=== PATIENT | male | born 1965 | race Two or more races ===

== ENCOUNTER 2020-05-25 09:00 | Outpatient (CLI) | payer OTHER ==
[2020-05-30] MEDS ORDERED: HYDROMORPHONE INJ 2 MG/ML DISP.SYRIN ONE (08:34)
[2020-05-30] MEDS ORDERED: BUPIVACAINE 0.5 % PF 150 MG/30 ML VIAL ONE (08:35)
[2020-05-30] MEDS ORDERED: MIDAZOLAM HCL 2 MG/2ML VIAL ONE (08:35)
[2020-05-30] MEDS ORDERED: ROCURONIUM BROMIDE 50 MG/5 ML ONE (08:35)
== END 2020-05-25 23:59 | disposition home or self-care (01) ==
LOC: LAB 09:00
PROVIDERS: ATTEND Student in an Organized Health Care Education/Training Program
DX: Z01.812 Encounter for preprocedural laboratory examination (principal); Z20.828 Contact with and (suspected) exposure to other viral communicable diseases
CPT/HCPCS: C9803-CS; J1170; J2250; J3490

== ENCOUNTER 2020-05-30 06:41 | Day surgery (SDC) | payer OTHER ==
[2020-05-30] MEDS ORDERED: BUPIVACAINE 0.5 % PF 150 MG/30 ML VIAL ONE (08:28)
[2020-05-30] MEDS ORDERED: BACITRACIN 50000 UNITS/VIAL ONE (08:28)
[2020-05-30] MEDS ORDERED: HEMOSTATIC MATRIX 8 ML 1 EACH PAD MC ONE (09:44)
[2020-05-30] MEDS ORDERED: ROCURONIUM BROMIDE 50 MG/5 ML ONE (09:54)
[2020-05-30] MEDS ORDERED: DESFLURANE 240 ML BOTTLE IH ONE (09:54)
[2020-05-30] MEDS ORDERED: HYDROMORPHONE INJ 2 MG/ML DISP.SYRIN ONE (11:28)
[2020-05-30] MEDS ORDERED: ONDANSETRON HCL/PF 4 MG/2 ML VIAL ONE (11:49)
[2020-05-30] MEDS ORDERED: DEXAMETHASONE SOD PHOSPHATE 4 MG/ML VIAL ONE (12:19)
[2020-05-30] MEDS ORDERED: hydrALAZINE HCL IV 20 MG VIAL ONE (12:20)
[2020-05-30] MEDS ORDERED: HYDROCODONE/APAP 10/325MG TABLET PO PRN ×3 (17:00)
== END 2020-05-30 16:00 | disposition home or self-care (01) ==
DX: S43.1 Subluxation and dislocation of acromioclavicular joint (principal); X58.XXXD Exposure to other specified factors, subsequent encounter; E66.01 Morbid (severe) obesity due to excess calories; J45.909 Unspecified asthma, uncomplicated; Z79.899 Other long term (current) drug therapy
CPT/HCPCS: 23552; 73020; A6209; C1713; C1762; J0360; J0690; J1100; J1170; J1885; J2405 ×2; J2704; J2765; J3490 ×3